=== PATIENT | female | born 2000 | race Two or more races ===

== ENCOUNTER 2024-12-09 17:45 | Inpatient (IN) | payer MEDICAID, OTHER ==
[~2024-12-09] VITALS: Ht 154.9 cm; Wt 57.4 kg
--- NOTE | 2024-12-09 18:26 | ED.PDOC ---
GI ASSESSMENT HPI Comments 24-year-old female with no significant past medical history brought in by self complaining of epigastric pain since yesterday. Patient reports the pain as it feels like something is pushing on me, localizes the pain to the epigastric area, and states she also feels dizzy. She denies any fever, nausea, vomiting, diarrhea, constipation or urinary symptoms. She states she is on a strict diet which is mostly limited to protein shakes. She was in contact with her surgeon who performed a gastric sleeve procedure on her 3 months ago, and was told to come to the hospital to be evaluated for gallbladder disease. Chief Complaint: Abdominal Pain Time Seen by MD: 18:13 Primary Care Provider: unknown Reviewed Notes: Nurses Notes, Medications, Allergies Allergies: Coded Allergies: NO KNOWN ALLERGIES (Unverified , 12/09/24) Home Meds No Active Prescriptions or Reported Meds Information Source: Patient Mode of Arrival: Ambulatory Timing: Days Duration: Since onset Prehospital treatment: None Past Medical History PAST MEDICAL HISTORY: Denies Surgical History (Other): gastric sleeve FLEXIBLE NANNY History: Denies all FLEXIBLE NANNY Hx Family History Family History: Unknown Social History Smoker: Non-Smoker Alcohol: Denies ETOH Use Drugs: Denies Drug Use Lives In: Home All Other Systems: Reviewed and Negative (Comprehensive review of systems negative unless otherwise stated in HPI) Physical Exam General Appearance: No Apparent Distress HEENT: PERRL/EOMI Neck: Full Range of Motion, Normal Inspection Respiratory: Lungs Clear, No Accessory Muscle Use, No Respiratory Distress, Normal Breath Sounds Cardiovascular: No Edema, No JVD, Regular Rate/Rhythm Breast Exam: Deferred Gastrointestinal: Epigastric, Tenderness, Other (No Garcia's sign) Genitalia: Deferred Pelvic: Deferred Rectal: Deferred Extremities: Normal inspection, Normal range of motion, Non-tender, No pedal edema Neurologic: Alert (Oriented x4), Normal Affect, Normal Mood, Other (Ambulatory. No gross focal deficit.) Cerebellar Function: NOT DONE Reflexes: NOT DONE Skin: Dry, Normal Color, Warm Lymphatic: NOT DONE Was a procedure done? Was a procedure done?: No GI differential Dx Differential Diagnosis: Cholangitis, Cholecystitis, Constipation, Gastriti s/PUD, Gastroenteritis, Hepatitis, Inflammatory BD, Pancreatitis, UTI, Dehydration, Electrolyte Imbalance, Food Poisoning, , Bacterial, Viral, Impaction, Stress Ulcer, Other (Biliary colic) X-Ray, Labs, Meds, VS Vital Signs Date Time Temp Pulse Resp B/P (MAP) Pulse Ox O2 Delivery O2 Flow Rate FiO2 12/09/24 19:44 98.1 63 17 112/66 (81) 99 98.1 12/09/24 19:44 63 17 99 Room Air 12/09/24 17:58 98.1 61 16 110/79 (89) 98 Lab Test 12/09/24 19:02 12/09/24 17:57 Range/Units White Blood Count 6.3 4.4-10.8 10^3/uL Red Blood Count 5.15 4.0-5.20 10^6/uL Hemoglobin 16.0 12.2-16.2 g/dL Hematocrit 47.9 H 36.0-46.0 % Mean Corpuscular Volume 92.9 80.0-100.0 fL Mean Corpuscular Hemoglobin 31.0 28.0-32.0 pg Mean Corpuscular Hemoglobin Concent 33.4 32.0-36.0 g/dL Red Cell Distribution Width 14.1 11.8-14.3 % Platelet Count 227 140-450 10^3/uL Mean Platelet Volume 9.7 6.9-10.8 fL Neutrophils (%) (Auto) 53.8 37.0-80.0 % Lymphocytes (%) (Auto) 35.6 10.0-50.0 % Monocytes (%) (Auto) 7.0 0.0-12.0 % Eosinophils (%) (Auto) 3.0 0.0-7.0 % Basophils (%) (Auto) 0.6 0.0-2.0 % Neutrophils # (Auto) 3.4 1.6-8.6 10 ^3/uL Lymphocytes # (Auto) 2.3 0.4-5.4 10 ^3/uL Monocytes # (Auto) 0.4 0-1.3 10 ^3/uL Eosinophils # (Auto) 0.2 0-0.8 10 ^3/uL Basophils # (Auto) 0 0-0.2 10 ^3/uL Nucleated Red Blood Cells 0.2 % Prothrombin Time 11.8 9.3-11.8 sec Prothrombin Time INR 1.13 0.9-1.15 Activated Partial Thromboplast Time 29.5 24.5-34.5 SEC Sodium Level 142 136-145 mmol/L Potassium Level 3.8 3.5-5.1 mmol/L Chloride Level 105 98-107 mmol/L Carbon Dioxide Level 25 20-31 mmol/L Anion Gap 12 5-15 Blood Urea Nitrogen 16 9-23 mg/dL Creatinine 0.53 L 0.550-1.02 mg/dL Glomerular Filtration Rate Calc 132 >90 mL/min BUN/Creatinine Ratio 30.2 H 10.0-20.0 Serum Glucose 92 74-106 mg/dL Hemoglobin A1c 4.5 <5.7 % A1C Calcium Level 11.0 H 8.7-10.4 mg/dL Total Bilirubin 0.5 0.2-1.0 mg/dL Aspartate Amino Transferase (AST) 13 13-40 U/L Alanine Aminotransferase (ALT) 16 7-40 U/L Alkaline Phosphatase 69 46-116 U/L Total Protein 7.3 5.7-8.2 g/dL Albumin 5.2 H 3.2-4.8 g/dL Lipase 84 H 12-53 U/L Thyroid Stimulating Hormone (TSH) 1.20 0.55-4.78 uIU/mL Beta HCG, Quantitative 0.5 L 1.5-4.2 mIU/mL Urine Color Yellow Yellow Urine Clarity Turbid H Clear Urine pH 5.5 5.0-9.0 Urine Specific [place] 1.036 H 1.001-1.035 Urine Protein 1+ H Negative Urine Ketones 3+ H Negative Urine Blood Negative Negative /uL Urine Nitrite Negative Negative Urine Bilirubin 1+ H Negative Urine Urobilinogen 3 H Negative mg/dL Urine Leukocyte Esterase Negative Negative /uL Urine RBC 3 0 - 4 /hpf Urine Microscopic WBC 6 H 0-5 /HPF Urine Squamous Epithelial Cells Few <5 /hpf Urine Calcium Oxalate Crystals Few None Seen Urine Bacteria None seen None Seen /hpf Urine Mucus Moderate None Seen Urine Glucose Normal Normal mg/dL Urine Opiates Screen Neg NEGATIVE Urine Fentanyl Screen Neg NEGATIVE Urine Barbiturates Screen Neg NEGATIVE Urine Phencyclidine Screen Neg NEGATIVE Urine Amphetamines Screen Neg NEGATIVE Urine Benzodiazepines Screen Neg NEGATIVE Urine Cocaine Screen Neg NEGATIVE Urine Cannabinoids Screen Neg NEGATIVE Current Medications Medications (Trade) Dose Ordered Sig/Janet Route Start Time Stop Time Status Last Admin Lidocaine HCl (Xylocaine 2% Viscous) 10 ml ONCE ONCE PO 12/09/24 18:30 12/09/24 18:32 DC 12/09/24 19:40 Belladonna Alkaloids/ Phenobarbital ( Elixir) 10 ml ONCE ONCE PO 12/09/24 18:30 12/09/24 18:32 DC 12/09/24 19:40 Al Hydrox/Mg Hydrox/Simethicone (Maalox Plus) 30 ml ONCE ONCE PO 12/09/24 18:30 12/09/24 18:32 DC 12/09/24 19:39 Morphine Sulfate 4 mg ONCE ONCE IV 12/09/24 20:45 12/09/24 21:04 DC 12/09/24 22:38 Ondansetron HCl (Zofran) 4 mg ONCE ONCE IV 12/09/24 20:45 12/09/24 21:04 DC 12/09/24 22:36 PROCEDURE(s): GBUS - GALLBLADDER REASON: epig pain ORDER NUMBER(s): [id number], ACCESSION NUMBER(s): [id number] EXAM: US Abdomen Limited, Gallbladder CLINICAL INDICATION: epig pain TECHNIQUE: Real-time ultrasound of the right upper quadrant with image documentation. COMPARISON: None FINDINGS: LIVER: Liver measures up to 12.9 cm. Hepatopetal flow in main portal vein. GALLBLADDER: Cholelithiasis. Negative Garcia's sign was reported by the rn employee health. COMMON BILE DUCT: Unremarkable as visualized. No stones. No dilation. Common bile duct measures 0.50 cm in diameter. PANCREAS: Unremarkable as visualized. RIGHT KIDNEY: Right kidney measures up to 9.2 cm. OTHER FINDINGS: . . IMPRESSION: Cholelithiasis without convincing evidence of acute cholecystitis. If symptoms persist, further evaluation with HIDA scan is recommended. EDURE(s): ABPL - CT AB PEL WO CON-NO ORAL OR IV REASON: epig pain h/o gastric sleeve ORDER NUMBER(s): [id number], ACCESSION NUMBER(s): [id number] Exam: CT CT AB PEL WO CON-NO ORAL OR IV History: epig pain h/o gastric sleeve Comparison Study: None Technique: Multidetector spiral CT of the abdomen was performed from lung bases to pubic symphysis. Imaging was performed without IV contrast. Axial, coronal and sagittal multiplanar reformats were obtained from the axial data set by the technologist. Radiation Dose : 1. Abdomen/Pelvis: CTDIvol 5.25 mGy, DLP 263.54 mGy*cm. Findings: Evaluation of solid organs is limited due to lack of intravenous contrast use. Lung Bases: No acute or significant lung base finding. Normal heart size. No pleural or pericardial effusion. Liver: The liver is normal in size. No focal lesions. Gallbladder and Biliary Tree: Unremarkable Spleen: Unremarkable Pancreas: The pancreas is grossly normal in appearance. Adrenal Glands: Unremarkable Kidneys: Kidneys are grossly normal without calculi or hydronephrosis. Bladder: Grossly unremarkable for degree of distention. Bowel: Status post gastric sleeve. Small bowel and colon are normal in caliber and distribution. The appendix is not visualized; however, no secondary findings of acute appendicitis identified. Ascites: Absent Lymphadenopathy: No mesenteric, retroperitoneal or periportal lymphadenopathy. Abdominal Wall and Mesentery: Unremarkable. Vasculature: The visualized abdominal aorta is normal in size and caliber. Evaluation of abdominal and pelvic vessels is limited due to lack of intravenous contrast. Pelvic Organs: Unremarkable Musculoskeletal: No aggressive focal bony lesions, acute fractures or dislocation. IMPRESSION: 1. No acute abdominal or pelvic findings. 2. Postoperative changes from gastric sleeve. Radiation optimization: All CT scans at this facility use at least one of these dose optimization techniques: automated exposure control mA and/or kV adjustment per patient size (includes targeted exams where dose is matched to clinical indication) or iterative reconstruction. X-Ray, Labs, Meds, VS Comment 24-year-old female with a history of gastric sleeve procedure 3 months ago complaining of epigastric pain since yesterday Vitals unremarkable Exam remarkable for epigastric tenderness to palpation. No Garcia's sign. Rhythm strip independently interpreted by me: Sinus rhythm, rate 61, no ectopy. Right upper quadrant ultrasound IMPRESSION: Cholelithiasis without convincing evidence of acute cholecystitis. If symptoms persist, further evaluation with HIDA scan is recommended. CT abdomen and pelvis CBC unremarkable, CMP remarkable for calcium 11, normal LFTs, lipase 84, UA pend ing, hCG negative Patient treated with the following in the ED: Viscous lidocaine 10 mL, 10 mL, Maalox 30 mL p.o., morphine 4 mg IV, Zofran 4 mg IV Plan is to admit the patient for HIDA scan and GI evaluation. Time of 1ST Reevaluation: 18:43 Reevaluation 1ST: Unchanged Patient Education/Counseling: Diagnosis, Treatment Family Education/Counseling: No Family Present Departure 1 Departure Time of Disposition: 20:36 Impression: Primary Impression: Gallstones Additional Impression: Acute pancreatitis Qualified Codes: K85.90 - Acute pancreatitis without necrosis or infection, unspecified Disposition: 09 ADMITTED INPATIENT Admit to: Med Surg Condition: Fair e-Prescriptions No Active Prescriptions or Reported Meds Critical Care Note Critical Care Time?: No Stability Stability form required: No Heart Score Heart Score: Heart Score Response (Comments) Value History N/A 0 EKG N/A 0 Age N/A 0 Risk Factors N/A 0 Troponin N/A 0 Total 0 I personally scribed for KIRAN GABRIEL MD ([email or web address]) on 12/09/24 at 18:47. Electronically submitted by Omid Stinson ([email or web address]). I personally scribed for KIRAN GABRIEL MD ([email or web address]) on 12/09/24 at 19:58. Electronically submitted by Omid Stinson ([email or web address]). I personally scribed for KIRAN GABRIEL MD ([email or web address]) on 12/09/24 at 21:00. Electronically submitted by Omid Stinson ([email or web address]). KIRAN GABRIEL MD Dec 09, 2024 18:26
--- NOTE | 2024-12-09 19:16 | DVH ---
EXAM: US Abdomen Limited, Gallbladder CLINICAL INDICATION: epig pain TECHNIQUE: Real-time ultrasound of the right upper quadrant with image documentation. COMPARISON: None FINDINGS: LIVER: Liver measures up to 12.9 cm. Hepatopetal flow in main portal vein. GALLBLADDER: Cholelithiasis. Negative Garcia's sign was reported by the glass blowing lathe operator. COMMON BILE DUCT: Unremarkable as visualized. No stones. No dilation. Common bile duct measures 0.50 cm in diameter. PANCREAS: Unremarkable as visualized. RIGHT KIDNEY: Right kidney measures up to 9.2 cm. OTHER FINDINGS: . . IMPRESSION: Cholelithiasis without convincing evidence of acute cholecystitis. If symptoms persist, further eval uation with HIDA scan is recommended.
[2024-12-09 19:29] LABS: Basophils # (auto) 0 10 ^3/uL (0-0.2); Basophils % (auto) 0.6 % (0.0-2.0); Eosinophils # (auto) 0.2 10 ^3/uL (0-0.8); Hematocrit 47.9 % (36.0-46.0); Lymphocytes # (auto) 2.3 10 ^3/uL (0.4-5.4); Lymphocytes % (auto) 35.6 % (10.0-50.0); Mean Corpuscular Hgb Conc. 33.4 g/dL (32.0-36.0); Mean Corpuscular Volume 92.9 fL (80.0-100.0); Monocytes # (auto) 0.4 10 ^3/uL (0-1.3); Neutrophils # (auto) 3.4 10 ^3/uL (1.6-8.6); Neutrophils % (auto) 53.8 % (37.0-80.0); Nucleated Red Blood Cells % 0.2 %; Platelet Count (auto) 227 10^3/uL (140-450); Red Blood Cells 5.15 10^6/uL (4.0-5.20); Red Cell Distribution Width 14.1 % (11.8-14.3); White Blood Cell 6.3 10^3/uL (4.4-10.8)
[2024-12-09 19:39] LABS: Alanine Aminotransferase 16 U/L (7-40); Alkaline Phosphatase 69 U/L (46-116); Anion Gap 12 (5-15); BUN/Creatinine Ratio 30.2 (10.0-20.0); Blood Urea Nitrogen 16 mg/dL (9-23); Carbon Dioxide 25 mmol/L (20-31); Chloride 105 mmol/L (98-107); Glucose 92 mg/dL (74-106); Potassium 3.8 mmol/L (3.5-5.1); Sodium 142 mmol/L (136-145); Total Protein 7.3 g/dL (5.7-8.2)
[2024-12-09] MEDS: MAALOX PLUS or MAALOX 30 ML PO ONE (19:39)
[2024-12-09 19:40] LABS: Albumin 5.2 g/dL (3.2-4.8); Aspartate Aminotransferase 13 U/L (13-40); Bilirubin, Total 0.5 mg/dL (0.2-1.0); Lipase 84 U/L (12-53)
[2024-12-09] MEDS: DONNATAL 5ml ORAL Elix (BELLADONNA ALK-PHENOBARB) PO ONE (19:40)
[2024-12-09] MEDS: LIDOCAINE VISCOUS 2% 15ML UD PO ONE (19:40)
[2024-12-09 20:04] LABS: Urine Bacteria None Seen /hpf (None Seen)
--- NOTE | 2024-12-09 20:15 | DVH ---
Exam: CT CT AB PEL WO CON-NO ORAL OR IV History: epig pain h/o gastric sleeve Comparison Study: None Technique: Multidetector spiral CT of the abdomen was performed from lung bases to pubic symphysis. Imaging was performed without IV contrast. Axial, coronal and sagittal multiplanar reformats were ob tained from the axial data set by the technologist. Radiation Dose : 1. Abdomen/Pelvis: CTDIvol 5.25 mGy, DLP 263.54 mGy*cm. Findings: Evaluation of solid organs is limited due to lack of intravenous contrast use. Lung Bases: No acute or significant lung base finding. Normal heart size. No pleural or pericardial effusion. Liver: The liver is normal in size. No focal lesions. Gallbladder and Biliary Tree: Unremarkable Spleen: Unremarkable Pancreas: The pancreas is grossly normal in appearance. Adrenal Glands: Unremarkable Kidneys: Kidneys are grossly normal without calculi or hydronephrosis. Bladder: Grossly unremarkable for degree of distention. Bowel: Status post gastric sleeve. Small bowel and colon are normal in caliber and distribution. The appendix is not visualized; however, no secondary findings of acute appendicitis identified. Ascites: Absent Lymphadenopathy: No mesenteric, retroperitoneal or periportal lymphadenopathy. Abdominal Wall and Mesentery: Unremarkable. Vasculature: The visualized abdominal aorta is normal in size and caliber. Evaluation of abdominal a nd pelvic vessels is limited due to lack of intravenous contrast. Pelvic Organs: Unremarkable Musculoskeletal: No aggressive focal bony lesions, acute fractures or dislocation. IMPRESSION: 1. No acute abdominal or pelvic findings. 2. Postoperative changes from gastric sleeve. Radiation optimization: All CT scans at this facility use at least one of these dose optimization j luis hniques: automated exposure control mA and/or kV adjustment per patient size (includes targeted exam s where dose is matched to clinical indication) or iterative reconstruction.
[2024-12-09 21:01] LABS: Urine Blood Negative /uL (Negative); Urine Clarity Turbid (Clear); Urine Color Yellow (Yellow); Urine Mucus MODERATE (None Seen); Urine Protein, UAD 1+ (Negative); Urine Specific Gravity 1.036 (1.001-1.035); Urine Squamous Epithelial Cell FEW /hpf (<5); Urine Urobilinogen 3 mg/dL (Negative); Urine WBC 6 /HPF (0-5); Urine pH 5.5 (5.0-9.0)
[2024-12-09] MEDS ORDERED: MORPHINE SULFATE INJ 2 MG/ml SYRG IV PRN (22:00)
[2024-12-09] MEDS: ONDANSETRON HCL 4 MG/2 ML VIAL IV ONE (22:36)
[2024-12-09] MEDS: MORPHINE SULFATE 4 MG/ML SYR/VIAL IV ONE (22:38)
[2024-12-09] MEDS: SODIUM CHLOR 0.9% PF (SALINE LOCK) 10ML VIAL/SYR IV SCH (22:38)
[2024-12-09 22:47] VITALS: PULSE 66; RESP 18; O2SAT 98
[2024-12-09 22:56] LABS: INR 1.13 (0.9-1.15); Partial Thromboplastin Time 29.5 SEC (24.5-34.5); Prothrombin Time 11.8 sec (9.3-11.8)
[2024-12-09 23:04] LABS: Magnesium 2.4 mg/dL (1.6-2.6)
[2024-12-09 23:06] LABS: Amphetamine Screen, Urine Neg (NEGATIVE); Barbiturate Scree,Urine Neg (NEGATIVE); Benzodiazephine Screen, Urine Neg (NEGATIVE); Cannabinoid Screen, Urine Neg (NEGATIVE); Cocaine Screen, Urine Neg (NEGATIVE); Opiate Scree,Urine Neg (NEGATIVE)
[2024-12-09 23:07] LABS: Phencyclidine Screen, Urine Neg (NEGATIVE)
[2024-12-09 23:26] LABS: COVID19 ANTIGEN SOFIA FIA NEGATIVE (NEGATIVE); Rapid Influenza A Negative (Negative); Rapid Influenza B Negative (Negative)
[2024-12-09 23:28] LABS: Blood Alcohol < 3.0 mg/dL (<10)
[2024-12-10] MEDS: SODIUM CHLORIDE 0.9% 1,000 ML IV SCH (00:31)
--- NOTE | 2024-12-10 00:42 | DVHHPRES ---
History of Present Illness Resident Creating Document: OLGA LIDIA HAMMOND RESIDENT History of Present Illness JESSICA FAIR A 24 years old female with no significant PMH presented to the ED with the chief complaints of epigastric pain since 2 days prior to admission. Patient reported she recently underwent gastric sleeve surgery 3 months back and lost almost 80 lb of weight. But for past 2 days patient has been having epigastric pain which is radiating to back which is constant 8/10 intensity no aggravating or relieving factors, not associated with fever, vomiting, diarrhea, constipation and other symptoms, she called her surgeon and advised to go to ED. PMH: Denies PSH: Gastric sleeve surgery, tonsillectomy Family history: Noncontributory , social history: Lives with family. Denies smoking, alcohol and other drug abuse Allergies: No known allergies Home medications: None Review of Systems Constitutional: No: Fever, Chills, Sweats, Weakness, Malaise, Other Eyes: No: Pain, Vision change, Conjunctivae inflammation, Eyelid inflammation, Other, Redness ENT: No: Ear pain, Ear discharge, Nose pain, Nose discharge, Nose congestion, Mouth pain, Mouth swelling, Throat pain, Throat swelling, Other Respiratory: No: Cough, Dry, Shortness of breath, SOB with excertion, Wheezing, Hemoptysis, Pleuritic Pain, Sputum, Wheezing, Other Cardiovascular: No: Chest Pain, Palpitations, Orthopnea, Paroxysmal Noc. Dyspnea, Edema, Lt Headedness, Other Gastrointestinal: Abdominal Pain Genitourinary: No Dysuria, No Frequency, No Incontinence, No Hematuria, No Retention, No Other Musculoskeletal: back pain Skin: No: Rash, Lesions, Jaundice, Bruising, Other Neurological: No: Weakness, Numbness, Incoordination, Change in speech, Confusion, Seizures, Other Allergies: Coded Allergies: NO KNOWN ALLERGIES (Unverified , 12/09/24) Medications Current Medications Medications Dose Ordered Sig/Janet Route Start Time Stop Time Status Last Admin Dose Admin Sodium Chloride 10 ml Q8HR IV 12/09/24 22:00 12/09/24 22:38 10 ML Sodium Chloride 1,000 ml @ 120 mls/hr Q8H20M IV 12/09/24 22:00 Ondansetron HCl 4 mg Q4HP PRN IV 12/09/24 22:00 Enoxaparin Sodium 40 mg DAILY SC 3/4/25 10:00 Acetaminophen 650 mg Q6HP PRN PO 12/09/24 22:00 Morphine Sulfate 2 mg Q4HPRN PRN IV 12/09/24 22:00 Exam Vital Signs Vital Signs Date Time Temp Pulse Resp B/P (MAP) Pulse Ox O2 Delivery O2 Flow Rate FiO2 12/09/24 23:23 61 18 105/68 12/09/24 22:47 98 Room Air* 0 21 12/09/24 22:37 98.3 98.3 Exam Pt is lying on bed General Appearance: Alert, Oriented X3, Cooperative, Not in acute distress HEENT: Atraumatic, Mucous membranes moist/pink Respiratory: Clear to auscultation, Normal air movement, No added sounds Cardiovascular: Regular rate, Normal S1, Normal S2, No murmurs Abdominal: Epigastric tenderness. Active bowel sounds, Soft, no distention Extremities: No edema, Normal pulses, No tenderness/swelling Skin: No Significant rash, except past surgical scars Neuro: Normal speech, sensorimotor deficits none Psych/Mental Status: Mental status NL, Mood NL Nurse was there as sharperone during examination Labs/Xrays Labs Test 12/09/24 22:35 12/09/24 22:21 12/09/24 19:02 12/09/24 17:57 Range/Units Influenza Type A Antigen Negative Negative Influenza Type B Antigen Negative Negative SARS-CoV-2 Antigen (Rapid) Negative NEGATIVE Lactic Acid Level 1.3 0.4-2.0 mmol/L Magnesium Level 2.4 1.6-2.6 mg/dL Ammonia < 10 L 11-32 umol/L Plasma/Serum Blood Alcohol < 3.0 <10 mg/dL White Blood Count 6.3 4.4-10.8 10^3/uL Red Blood Count 5.15 4.0-5.20 10^6/uL Hemoglobin 16.0 12.2-16.2 g/dL Hematocrit 47.9 H 36.0-46.0 % Mean Corpuscular Volume 92.9 80.0-100.0 fL Mean Corpuscular Hemoglobin 31.0 28.0-32.0 pg Mean Corpuscular Hemoglobin Concent 33.4 32.0-36.0 g/dL Red Cell Distribution Width 14.1 11.8-14.3 % Platelet Count 227 140-450 10^3/uL Mean Platelet Volume 9.7 6.9-10.8 fL Neutrophils (%) (Auto) 53.8 37.0-80.0 % Lymphocytes (%) (Auto) 35.6 10.0-50.0 % Monocytes (%) (Auto) 7.0 0.0-12.0 % Eosinophils (%) (Auto) 3.0 0.0-7.0 % Basophils (%) (Auto) 0.6 0.0-2.0 % Neutrophils # (Auto) 3.4 1.6-8.6 10 ^3/uL Lymphocytes # (Auto) 2.3 0.4-5.4 10 ^3/uL Monocytes # (Auto) 0.4 0-1.3 10 ^3/uL Eosinophils # (Auto) 0.2 0-0.8 10 ^3/uL Basophils # (Auto) 0 0-0.2 10 ^3/uL Nucleated Red Blood Cells 0.2 % Prothrombin Time 11.8 9.3-11.8 sec Prothrombin Time INR 1.13 0.9-1.15 Activated Partial Thromboplast Time 29.5 24.5-34.5 SEC Sodium Level 142 136-145 mmol/L Potassium Level 3.8 3.5-5.1 mmol/L Chloride Level 105 98-107 mmol/L Carbon Dioxide Level 25 20-31 mmol/L Anion Gap 12 5-15 Blood Urea Nitrogen 16 9-23 mg/dL Creatinine 0.53 L 0.550-1.02 mg/dL Glomerular Filtration Rate Calc 132 >90 mL/min BUN/Creatinine Ratio 30.2 H 10.0-20.0 Serum Glucose 92 74-106 mg/dL Hemoglobin A1c 4.5 <5.7 % A1C Calcium Level 11.0 H 8.7-10.4 mg/dL Total Bilirubin 0.5 0.2-1.0 mg/dL Aspartate Amino Transferase (AST) 13 13-40 U/L Alanine Aminotransferase (ALT) 16 7-40 U/L Alkaline Phosphatase 69 46-116 U/L Total Protein 7.3 5.7-8.2 g/dL Albumin 5.2 H 3.2-4.8 g/dL Lipase 84 H 12-53 U/L Thyroid Stimulating Hormone (TSH) 1.20 0.55-4.78 uIU/mL Beta HCG, Quantitative 0.5 L 1.5-4.2 mIU/mL Urine Color Yellow Yellow Urine Clarity Turbid H Clear Urine pH 5.5 5.0-9.0 Urine Specific [place] 1.036 H 1.001-1.035 Urine Protein 1+ H Negative Urine Ketones 3+ H Negative Urine Blood Negative Negative /uL Urine Nitrite Negative Negative Urine Bilirubin 1+ H Negative Urine Urobilinogen 3 H Negative mg/dL Urine Leukocyte Esterase Negative Negative /uL Urine RBC 3 0 - 4 /hpf Urine Microscopic WBC 6 H 0-5 /HPF Urine Squamous Epithelial Cells Few <5 /hpf Urine Calcium Oxalate Crystals Few None Seen Urine Bacteria None seen None Seen /hpf Urine Mucus Moderate None Seen Urine Glucose Normal Normal mg/dL Urine Opiates Screen Neg NEGATIVE Urine Fentanyl Screen Neg NEGATIVE Urine Barbiturates Screen Neg NEGATIVE Urine Phencyclidine Screen Neg NEGATIVE Urine Amphetamines Screen Neg NEGATIVE Urine Benzodiazepines Screen Neg NEGATIVE Urine Cocaine Screen Neg NEGATIVE Urine Cannabinoids Screen Neg NEGATIVE Assessment/Plan Assessment/Plan # possible PUD # symptomatic cholelithiasis, # rule out acute cholecystitis # rule out acute pancreatitis - elevated lipase - CT abdominal pelvis showed no acute changes - gallbladder ultrasound showed cholelithiasis but inconclusive regarding cholecystitis - consulted surgeon - NPO status and supportive management for now - Protonix and IVF Protonix Lovenox Cardiac diet Goals of care discussed with the patient for more than 27 minutes: Full code status Case discussed with Dr. Lopez, patient and RN Plan discussed with: Patient My Orders Orders - OLGA LIDIA HAMMOND RESIDENT Procedure Category Date Status Time Admit ADMIT 12/09/24 Transmitted 21:51 Allergies CYN 12/09/24 In Process 21:51 Code Status CODE 12/09/24 Transmitted 21:51 Sodium Chloride Lock PHA 12/09/24 In Process (Saline Lock Ns) 22:00 Sodium Chloride 0.9% PHA 12/09/24 In Process 22:00 Ondansetron Hcl PHA 12/09/24 In Process (Zofran) 22:00 Enoxaparin Sodium PHA 12/10/24 In Process (Lovenox) 10:00 Complete Blood Count LAB 12/10/24 Logged 04:00 Comprehensive LAB 12/10/24 Logged Metabolic Panel 04:00 Npo (Nothing By DIET 12/10/24 Transmitted Mouth) Diet Breakfast Condition: Stable CYN 3/3/25 In Process 21:51 Acetaminophen Tablet PHA 12/09/24 In Process (Tylenol Tablet) 22:00 Morphine Sulfate PHA 12/09/24 In Process Injection 22:00 * Surgical Consult CONS 12/09/24 Transmitted Pantoprazole PHA 12/10/24 Transmitted (Protonix) 00:45 Date of Service: Dec 09, 2024 Billing Provider: AMAURY LOPEZ MD Common Visit Codes: [id number] INP/OBS CARE (HIGH) OLGA LIDIA HAMMOND RESIDENT Dec 10, 2024 00:42 AMAURY LOPEZ MD Dec 10, 2024 10:20
[2024-12-10 01:00] VITALS: BP 115/65; PULSE 60; RESP 15; TEMP 98; O2SAT 100
[2024-12-10] MEDS: PANTOPRAZOLE 40 MG/10 ML VIAL INJ IV SCH (01:18)
[2024-12-10 05:00] VITALS: BP 115/69; PULSE 58; RESP 15; TEMP 97.7; O2SAT 100
[2024-12-10 07:36] LABS: Basophils # (auto) 0 10 ^3/uL (0-0.2); Basophils % (auto) 0.8 % (0.0-2.0); Eosinophils # (auto) 0.2 10 ^3/uL (0-0.8); Hematocrit 42.4 % (36.0-46.0); Hemoglobin 13.9 g/dL (12.2-16.2); Lymphocytes # (auto) 2.1 10 ^3/uL (0.4-5.4); Mean Corpuscular Hemoglobin 30.9 pg (28.0-32.0); Mean Corpuscular Hgb Conc. 32.9 g/dL (32.0-36.0); Mean Corpuscular Volume 93.9 fL (80.0-100.0); Monocytes # (auto) 0.5 10 ^3/uL (0-1.3); Monocytes % (auto) 9.4 % (0.0-12.0); Neutrophils # (auto) 2.9 10 ^3/uL (1.6-8.6); Neutrophils % (auto) 49.8 % (37.0-80.0); Nucleated Red Blood Cells % 0.1 %; Platelet Count (auto) 190 10^3/uL (140-450); Red Blood Cells 4.52 10^6/uL (4.0-5.20); Red Cell Distribution Width 14.1 % (11.8-14.3); White Blood Cell 5.8 10^3/uL (4.4-10.8)
[2024-12-10 07:46] LABS: Alanine Aminotransferase 10 U/L (7-40); Albumin 4.4 g/dL (3.2-4.8); Alkaline Phosphatase 57 U/L (46-116); Anion Gap 12 (5-15); BUN/Creatinine Ratio 25.5 (10.0-20.0); Bilirubin, Total 0.7 mg/dL (0.2-1.0); Blood Urea Nitrogen 12 mg/dL (9-23); Calcium 10.1 mg/dL (8.7-10.4); Carbon Dioxide 25 mmol/L (20-31); Chloride 104 mmol/L (98-107); Potassium 3.9 mmol/L (3.5-5.1); Sodium 141 mmol/L (136-145); Total Protein 6.5 g/dL (5.7-8.2)
[2024-12-10 07:48] LABS: Aspartate Aminotransferase 13 U/L (13-40); Glucose 68 mg/dL (74-106)
[2024-12-10] MEDS: ONDANSETRON HCL 4 MG/2 ML VIAL IV PRN (08:33)
[2024-12-10] MEDS: ACETAMINOPHEN 325 MG TAB PO PRN (08:34)
[2024-12-10] MEDS: ENOXAPARIN SOD 40 MG/0.4 ML SYRINGE SC SCH (08:34)
--- NOTE | 2024-12-10 13:06 | DVHDSRES ---
Discharge Summary Date of Admission Resident Creating Document: JOON DEL ROSARIO RESIDENT Dec 09, 2024 at 21:51 Date of Discharge: Dec 10, 2024 Admitting Diagnosis Epigastric pain Labs/Diagnostic Data: Laboratory Results Test 12/10/24 06:00 12/09/24 22:35 12/09/24 22:21 12/09/24 19:02 White Blood Count 5.8 10^3/uL (4.4-10.8) Red Blood Count 4.52 10^6/uL (4.0-5.20) Hemoglobin 13.9 g/dL (12.2-16.2) Hematocrit 42.4 % (36.0-46.0) Mean Corpuscular Volume 93.9 fL (80.0-100.0) Mean Corpuscular Hemoglobin 30.9 pg (28.0-32.0) Mean Corpuscular Hemoglobin Concent 32.9 g/dL (32.0-36.0) Red Cell Distribution Width 14.1 % (11.8-14.3) Platelet Count 190 10^3/uL (140-450) Mean Platelet Volume 10.0 fL (6.9-10.8) Neutrophils (%) (Auto) 49.8 % (37.0-80.0) Lymphocytes (%) (Auto) 37.0 % (10.0-50.0) Monocytes (%) (Auto) 9.4 % (0.0-12.0) Eosinophils (%) (Auto) 3.0 % (0.0-7.0) Basophils (%) (Auto) 0.8 % (0.0-2.0) Neutrophils # (Auto) 2.9 10 ^3/uL (1.6-8.6) Lymphocytes # (Auto) 2.1 10 ^3/uL (0.4-5.4) Monocytes # (Auto) 0.5 10 ^3/uL (0-1.3) Eosinophils # (Auto) 0.2 10 ^3/uL (0-0.8) Basophils # (Auto) 0 10 ^3/uL (0-0.2) Nucleated Red Blood Cells 0.1 % Sodium Level 141 mmol/L (136-145) Potassium Level 3.9 mmol/L (3.5-5.1) Chloride Level 104 mmol/L (98-107) Carbon Dioxide Level 25 mmol/L (20-31) Anion Gap 12 (5-15) Blood Urea Nitrogen 12 mg/dL (9-23) Creatinine 0.47 mg/dL (0.550-1.02) Glomerular Filtration Rate Calc 136 mL/min (>90) BUN/Creatinine Ratio 25.5 (10.0-20.0) Serum Glucose 68 mg/dL (74-106) Calcium Level 10.1 mg/dL (8.7-10.4) Total Bilirubin 0.7 mg/dL (0.2-1.0) Aspartate Amino Transferase (AST) 13 U/L (13-40) Alanine Aminotransferase (ALT) 10 U/L (7-40) Alkaline Phosphatase 57 U/L (46-116) Total Protein 6.5 g/dL (5.7-8.2) Albumin 4.4 g/dL (3.2-4.8) Influenza Type A Antigen Negative (Negative) Influenza Type B Antigen Negative (Negative) SARS-CoV-2 Antigen (Rapid) Negative (NEGATIVE) Lactic Acid Level 1.3 mmol/L (0.4-2.0) Magnesium Level 2.4 mg/dL (1.6-2.6) Ammonia < 10 umol/L (11-32) Plasma/Serum Blood Alcohol < 3.0 mg/dL (<10) Prothrombin Time 11.8 sec (9.3-11.8) Prothrombin Time INR 1.13 (0.9-1.15) Activated Partial Thromboplast Time 29.5 SEC (24.5-34.5) Hemoglobin A1c 4.5 % A1C (<5.7) Lipase 84 U/L (12-53) Thyroid Stimulating Hormone (TSH) 1.20 uIU/mL (0.55-4.78) Beta HCG, Quantitative 0.5 mIU/mL (1.5-4.2) Test 12/09/24 17:57 Urine Color Yellow (Yellow) Urine Clarity Turbid (Clear) Urine pH 5.5 (5.0-9.0) Urine Specific [place] 1.036 (1.001-1.035) Urine Protein 1+ (Negative) Urine Ketones 3+ (Negative) Urine Blood Negative /uL (Negative) Urine Nitrite Negative (Negative) Urine Bilirubin 1+ (Negative) Urine Urobilinogen 3 mg/dL (Negative) Urine Leukocyte Esterase Negative /uL (Negative) Urine RBC 3 /hpf (0 - 4) Urine Microscopic WBC 6 /HPF (0-5) Urine Squamous Epithelial Cells Few /hpf (<5) Urine Calcium Oxalate Crystals Few (None Seen) Urine Bacteria None seen /hpf (None Seen) Urine Mucus Moderate (None Seen) Urine Glucose Normal mg/dL (Normal) Urine Opiates Screen Neg (NEGATIVE) Urine Fentanyl Screen Neg (NEGATIVE) Urine Barbiturates Screen Neg (NEGATIVE) Urine Phencyclidine Screen Neg (NEGATIVE) Urine Amphetamines Screen Neg (NEGATIVE) Urine Benzodiazepines Screen Neg (NEGATIVE) Urine Cocaine Screen Neg (NEGATIVE) Urine Cannabinoids Screen Neg (NEGATIVE) Other Laboratory Tests 12/10/24 06:00 Brief Hx & Hospital Course: JESSICA FAIR A 24 years old female with no significant PMH presented to the ED with the chief complaints of epigastric pain since 2 days prior to admission. Patient reported she recently underwent gastric sleeve surgery 3 months back and lost almost 80 lb of weight. But for past 2 days patient has been having epigastric pain which is radiating to back which is constant 8/10 intensity no aggravating or relieving factors, not associated with fever, vomiting, diarrhea, constipation and other symptoms, she called her surgeon and advised to go to ED. Hospital course: Gallbladder ultrasound showed cholelithiasis but inconclusive regarding cholecystitis, CT abdomen pelvis showed no acute changes, lipase was elevated at 84. Patient was placed on NPO and started on IV fluids and IV Protonix and surgery was taken on board. However, patient left against medical advice before further evaluation and management could be completed. Condition at Discharge: Undetermined Final Diagnosis/Problems List Acute intractable abdominal pain possibly due to cholecystitis vs symptomatic cholelithiasis Acute pancreatitis can not be ruled out Possible peptic ulcer disease Discharge Disposition: AMA Discharge Statement: "Patient was advised to return to the ER or call 911 if any headaches, dizziness, shortness of breath, chest pain, abdominal pain, bleeding, fevers, or worsening of medical condition. Patient was counseled about treatment plan, medications, possible side effects, patientverbalized understanding. All questions were answered to the best of my ability. This discharge took greater then 30 minutes in planning, reviewing documentation, counseling the patient, and discussing with other team members." ASSESSMENT ASSESSMENT Assessment JOON DEL ROSARIO RESIDENT Dec 10, 2024 13:06
== END 2024-12-10 08:54 | disposition left against medical advice (07) ==
LOC: ER 17:45 → OVERFLOW 21:51
PROVIDERS: ADMIT Student in an Organized Health Care Education/Training Program; ATTEND Student in an Organized Health Care Education/Training Program
DX: K80.10 Calculus of gallbladder with chronic cholecystitis without obstruction (principal); K85.90 Acute pancreatitis without necrosis or infection, unspecified; K27.9 Peptic ulcer, site unspecified, unspecified as acute or chronic, without hemorrhage or perforation; Z53.29 Procedure and treatment not carried out because of patient's decision for other reasons; Z98.84 Bariatric surgery status; Z79.899 Other long term (current) drug therapy
CPT/HCPCS: 36415; 74176; 76705; 80053; 80307; 80320; 81001; 82140; 83036; 83605; 83690; 83735; 84443; 84702; 85025; 85610; 85730; 87426; 87804; 96374; 96375; G0378; J2405; J2470